=== PATIENT | female | born 1965 | race Caucasian/White ===

== ENCOUNTER 2018-11-04 13:51 | Observation (INO) ==
--- NOTE | 2018-11-04 14:16 | Emergency Department Note ---
Disposition Clinical Impression: Pyelonephritis Disposition: Admitted As Inpatient Condition: Fair Referrals: NONE,PCP [Non-Partnered Physician] - Forms: ED Satisfaction Letter Time of Disposition: 15:25 Female Urogenital HPI - General Chief complaint: ED Urogenital-Female Stated complaint: fever, nausea/vomiting possible uti Time Seen by Provider: 11/04/18 13:56 Source: patient Mode of arrival: ambulatory Limitations: no limitations Nursing Notes Reviewed: Yes Vital Signs Reviewed: Yes - History of Present Illness HPI Narrative: 53-year-old female has had a nephrectomy secondary to renal cancer presents to resume his having burning urgency frequency now she is developing flank pain and vomiting and fevers she states she has gotten worse over the past couple of days. She denies diarrhea melena hematochezia hematemesis. Patient states though that she said the pains in 8-9 out of 10. Denies any blurred vision double vision loss vision. Nothing makes it better nothing makes it worse. She denies cough cold of flulike symptoms chest pain chest pressure palpitations. She denies any rashes or lesions. Patient has frequent UTIs since her nephrectomy is been unclear why this is occurring patient eyes any additional c omplaints with complete entire review systems. Her your urologist is [place] she is agreed to stay at our facility at this time for 23 hours for antibiotics if necessary Pt Subjective Complaint: dysuria, "UTI" Onset (ago): day(s) Location: suprapubic Radiation: non-radiating Severity: severe Severity scale (1-10): 9 Quality: cramping Duration: constant, gradually worsening Improves with: none Worsens with: none Urinary Symptoms: dysuria, urgency, frequency Associated symptoms: Reports: abdominal pain, nausea/vomiting, fever/chills, loss of appetite - Related Data Home Medications Medication Instructions Recorded Confirmed Bupropion HCl [Wellbutrin Xl] 300 mg PO DAILY 12/18/16 11/04/18 Levothyroxine [place] [address]/18/16 11/04/18 Omeprazole [PriLOSEC] 40 mg PO DAILY 12/18/16 11/04/18 Atorvastatin [Lipitor] 40 mg PO HS 05/06/17 11/04/18 LORazepam [Ativan] 1 mg PO DAILY PRN 11/04/18 11/04/18 Metoprolol [Lopressor] 100 mg PO DAILY 11/04/18 11/04/18 Previous Rx's Medication Instructions Recorded Nitroglycerin 0.4 mg SL Q5MIN PRN #15 01/03/17 Ibuprofen 800 mg PO 2-3XD PRN #30 tablet 06/20/17 Allergies Allergy/AdvReac Type Severity Reaction Status Date / Time No Known Allergies Allergy Verified 03/02/18 18:39 All systems ED: reviewed and negative except as stated. Review of Systems: As Per HPI Constitutional: Reports: fever. Denies: chills, weakness Eyes: Denies: eye pain, eye discharge ENT ED: Denies: ear pain, throat pain Cardiovascular: Denies: chest pain, palpitations Respiratory: Denies: cough, dyspnea Gastrointestinal: Reports: abdominal pain, nausea, vomiting Genitourinary: Reports: urgency, dysuria, frequency Musculoskeletal: Reports: back pain. Denies: neck pain Integumentary: Denies: rash, abrasion Neurological: Denies: headache, weakness Psychiatric: Denies: anxiety Endocrine: Denies: fatigue Hematological/Lymphatic: Denies: easy bleeding Allergic/Immunologic: Denies: facial swelling Past Medical History - Past Medical History Attestation: Yes The following information was validated with the patient. 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 - Social History Smoking Status: Former smoker Smokeless Tobacco Status: No Alcohol use: Reports: none, rarely Drug use: Reports: none Physical Exam - General Limitations: no limitations General appearance: in no apparent distress - Head Head exam: atraumatic, normocephalic, normal inspection - Eye Eye exam: Present: normal appearance, PERRL, EOMI - ENT ENT exam: normal exam, normal oropharynx, mucous membranes moist - Expanded ENT Exam External ear exam: Present: normal external inspection Mouth exam: Present: normal external inspection Teeth exam: Present: normal inspection Throat exam: Present: normal inspection - Neck Neck exam: Present: normal inspection, full ROM, trachea midline - Chest Chest inspection: Present: normal inspection, symmetric chest wall rise - Respiratory Respiratory exam: Present: normal lung sounds bilaterally - Cardiovascular Cardiovascular exam: Present: regular rate, normal rhythm, normal heart sounds - Abdominal Exam Abdominal exam: Present: soft, Non-Tender, normal bowel sounds. Absent: tenderness, distention, guarding, rebound, rigidity, mass, pulsatile mass - Extremities Exam Extremities exam: Present: normal inspection, full ROM. Absent: tenderness, pedal edema - Expanded Upper Extremity Exam Shoulder exam: Present: normal inspection, full ROM Arm exam: Present: normal inspection, full ROM Elbow exam: Present: normal inspection, full ROM Forearm/Wrist exam: Present: normal inspection, full ROM Hand exam: Present: normal inspection, full ROM Vascular exam: Normal: capillary refill, radial pulse - Expanded Lower Extremity Exam Hip/Pelvis exam: Present: normal inspection, full ROM Upper leg exam: Present: normal inspection, full ROM Knee exam: Present: normal inspection, full ROM Lower leg exam: Present: normal inspection, full ROM Ankle exam: Present: normal inspection, full ROM Foot/toe exam: Present: normal inspection, full ROM Neurovascular/Tendon exam: Present: normal capillary refill, normal fine/light touch. Absent: motor deficit, sensory deficit, tendon deficit Gait: observed and normal - Back Exam Back exam: Present: normal inspection, full ROM. Absent: tenderness - Neurological Exam Neurological exam: Present: alert, oriented X3, CN II-XII intact, normal gait - Expanded Neurological Exam Patient oriented to: Present: person, place, time Coma Scale Eye Opening: Spontaneous Coma Scale Motor Response: Obeys Commands Coma Scale Verbal Response: Oriented Coma Scale Total: 15 - Psychiatric Psychiatric exam: Present: normal affect, normal mood - Skin Skin exam: Present: warm, dry, intact, normal color Course Course Narrative: Patient seen and examined given IV antibiotics patient was initially little bit reluctant on staying here but she did finally agree to staying and receiving IV antibiotics transferred to [facility] stable Vital Signs Temperature 100.5 F H 11/04/18 13:56 Pulse Rate 55 11/04/18 13:56 Respiratory Rate 18 11/04/18 13:56 Blood Pressure 96/66 11/04/18 13:56 O2 Sat by Pulse Oximetry 92 11/04/18 13:56 Temperature 100.5 F H 11/04/18 13:56 Pulse Rate 100 11/04/18 15:23 Respiratory Rate 18 11/04/18 15:23 Blood Pressure 99/67 11/04/18 15:23 O2 Sat by Pulse Oximetry 94 11/04/18 15:23 Oxygen Delivery Oxygen Delivery Room Air Urogenital-Female - MDM Narrative Medical decision making narrative: Fluids were transfused is upon the patient's ideal body weight of 160 keep pain not the 127 kg that she waited - Differential Diagnosis Likely: urinary tract infection - Medical Records Medical records reviewed: Yes I reviewed the patient's medical records. - Lab Data Lab results reviewed: Yes I reviewed the patient's lab results. Result diagrams: 11/04/18 14:31 11/04/18 14:31 Lab Results 11/04/18 11/04/18 11/04/18 Range/Units 14:31 14:31 14:31 WBC 20.0 H (4.3-11.1) K/mcL RBC 4.09 (3.82-4.97) M/mcL Hgb 12.8 (11.5-15.4) g/dL Hct 38.1 (35.3-44.9) % MCV 93.2 (83.0-100.0) fL MCH 31.3 (28.0-33.3) pg MCHC 33.6 (31.6-35.5) g/dL RDW 12.7 (11.5-14.5) % Plt Count 296 (140-400) K/mcL MPV 10.0 (9.4-12.4) fL Immature Gran % 1.0 (0-4) % Seg Neutrophils % 91.8 % Lymphocytes % 2.3 % Monocytes % 4.4 % Eosinophils % 0.1 % Basophils % 0.4 % Neutrophils # 18.4 H (1.6-8.9) K/mcL Lymphocytes # 0.5 L (0.6-4.6) K/mcL Monocytes # 0.9 (0.0-1.3) K/mcL Eosinophils # 0.0 (0.0-0.6) K/mcL Basophils # 0.1 (0.0-0.2) K/mcL Sodium 133 L (136-145) mEq/L Potassium 4.5 (3.5-5.1) mEq/L Chloride 100 (98-107) mEq/L Carbon Dioxide 21 L (23-29) mEq/L BUN 18 (6-20) mg/dL Creatinine 1.36 H (0.60-1.20) mg/dL Est GFR ( Amer) 49 L (> 60) Est GFR (Non-Af Amer) 41 L (> 60) BUN/Creatinine Ratio 13 (6-26) Glucose 165 H (70-105) mg/dL Calculated Osmolality 282 (280-300) Lactic Acid 1.4 (0.5-2.2) mmol/L Calcium 9.3 (8.6-10.3) mg/dL Total Bilirubin 0.5 (0.3-1.0) mg/dL AST 25 (13-39) Units/L ALT 32 (7-52) Units/L Alkaline Phosphatase 69 (34-104) Units/L Serum Total Protein 7.1 (6.4-8.9) g/dL Albumin 3.9 (3.5-5.7) g/dL Globulin 3.2 (2.4-3.5) g/dL Albumin/Globulin Ratio 1.2 (1.1-2.2) Urine Color (Yellow) Urine Clarity (Clear) Urine pH (5.0-8.0) pH Units Ur Specific [place] (1.010-1.025) Urine Protein (Neg-Trace) mg/dL Urine Glucose (UA) (Normal) mg/dL Urine Ketones (Negative) mg/dL Urine Blood (Negative) Urine Nitrite (Negative) Urine Bilirubin (Negative) Urine Urobilinogen (Normal) mg/dL Ur Leukocyte Esterase (Negative) 11/04/18 Range/Units 15:15 WBC (4.3-11.1) K/mcL RBC (3.82-4.97) M/mcL Hgb (11.5-15.4) g/dL Hct (35.3-44.9) % MCV (83.0-100.0) fL MCH (28.0-33.3) pg MCHC (31.6-35.5) g/dL RDW (11.5-14.5) % Plt Count (140-400) K/mcL MPV (9.4-12.4) fL Immature Gran % (0-4) % Seg Neutrophils % % Lymphocytes % % Monocytes % % Eosinophils % % Basophils % % Neutrophils # (1.6-8.9) K/mcL Lymphocytes # (0.6-4.6) K/mcL Monocytes # (0.0-1.3) K/mcL Eosinophils # (0.0-0.6) K/mcL Basophils # (0.0-0.2) K/mcL Sodium (136-145) mEq/L Potassium (3.5-5.1) mEq/L Chloride (98-107) mEq/L Carbon Dioxide (23-29) mEq/L BUN (6-20) mg/dL Creatinine (0.60-1.20) mg/dL Est GFR ( Amer) (> 60) Est GFR (Non-Af Amer) (> 60) BUN/Creatinine Ratio (6-26) Glucose (70-105) mg/dL Calculated Osmolality (280-300) Lactic Acid (0.5-2.2) mmol/L Calcium (8.6-10.3) mg/dL Total Bilirubin (0.3-1.0) mg/dL AST (13-39) Units/L ALT (7-52) Units/L Alkaline Phosphatase (34-104) Units/L Serum Total Protein (6.4-8.9) g/dL Albumin (3.5-5.7) g/dL Globulin (2.4-3.5) g/dL Albumin/Globulin Ratio (1.1-2.2) Urine Color Yellow (Yellow) Urine Clarity Turbid A (Clear) Urine pH 5.5 (5.0-8.0) pH Units Ur Specific [place] 1.010 (1.010-1.025) Urine Protein 100 H (Neg-Trace) mg/dL Urine Glucose (UA) 100 H (Normal) mg/dL Urine Ketones Negative (Negative) mg/dL Urine Blood Large H (Negative) Urine Nitrite Positive A (Negative) Urine Bilirubin Small H (Negative) Urine Urobilinogen Normal (Normal) mg/dL Ur Leukocyte Esterase Large H (Negative) Critical Care Time Critical Care Time: No Sepsis Event Note - Evaluation Sepsis Screen: No Definite Risk Current Stage of Suspected Sepsis: sepsis Possible Source of Sepsis: genitourinary - Focused Exam Date of Encounter: 11/04/18 Time of Encounter: 15:31 Vital Signs: Vital Signs Temp Pulse Resp BP Pulse Ox 11/04/18 15:23 100 18 99/67 94 11/04/18 13:56 100.5 F H 55 18 96/66 92 Respiratory Exam: Present: CTA bilaterally Cardiovascular Exam: Present: RRR Capillary Refill: < 2 seconds Peripheral Pulse Strength: 3+ normal Peripheral Pulse Location: Radial Skin Exam: normal turgor - Bedside Monitoring Bedside Ultrasound Performed: No Passive Leg raise/fluid bolus: fluid responsive
[2018-11-04] MEDS ORDERED: Morphine Sulfate 2 MG/ML SYRINGE IVP ONE (14:23)
[2018-11-04] MEDS ORDERED: Ondansetron 4 MG/2 ML VIAL IVP ONE (14:23)
[2018-11-04 14:38] LABS: Basophils # 0.1 K/mcL (0.0-0.2); Basophils % 0.4 %; Eosinophils % 0.1 %; Hematocrit 38.1 % (35.3-44.9); Hemoglobin 12.8 g/dL (11.5-15.4); Lymphocytes # 0.5 K/mcL (0.6-4.6); Lymphocytes % 2.3 %; Mean Corpuscular HGB Conc 33.6 g/dL (31.6-35.5); Mean Corpuscular Hemoglobin 31.3 pg (28.0-33.3); Mean Corpuscular Volume 93.2 fL (83.0-100.0); Monocytes # 0.9 K/mcL (0.0-1.3); Monocytes % 4.4 %; Neutrophils # 18.4 K/mcL (1.6-8.9); Platelet Count 296 K/mcL (140-400); Red Blood Count 4.09 M/mcL (3.82-4.97); Red Cell Distribution Width 12.7 % (11.5-14.5); Segmented Neutrophils % 91.8 %
[2018-11-04] MEDS ORDERED: 0.9 % Sodium Chloride 1,000 ML IVC ONE ×2 (14:38→15:32)
[2018-11-04 14:58] LABS: Albumin 3.9 g/dL (3.5-5.7); Albumin/Globulin Ratio 1.2 (1.1-2.2); Bilirubin,Total 0.5 mg/dL (0.3-1.0); Calcium 9.3 mg/dL (8.6-10.3); Globulin 3.2 g/dL (2.4-3.5); Potassium 4.5 mEq/L (3.5-5.1); Total Protein 7.1 g/dL (6.4-8.9)
[2018-11-04 15:23] LABS: Bilirubin,Urine Small (Negative); Blood,Urine Large (Negative); Clarity,Urine Turbid (Clear); Color,Urine Yellow (Yellow); Glucose,Urine (UA) 100 mg/dL (Normal); Ketones,Urine Negative (Negative); Leukocyte Esterase,Urine Large (Negative); Nitrite,Urine Positive (Negative); PH,Urine 5.5 pH Units (5.0-8.0); Protein,Urine 100 mg/dL (Neg-Trace); Urobilinogen,Urine Normal (Normal)
[2018-11-04 15:39] LABS: Amorphous Sediment,Urine Few (Few); Bacteria,Urine Many per hpf (None-Few); Mucus,Urine Few (Few); Squamous Epithelial Cell,Urine Moderate per lpf (None-Few); WBC,Urine 50-100 per hpf (0-3)
[2018-11-04] MEDS ORDERED: *HR* LORazepam 1 MG TABLET PO PRN (19:50)
[2018-11-05] MEDS: *HR* OxyCODONE Immed Rel 5 MG TABLET PO PRN ×3 (02:46→16:18)
[2018-11-05 06:17] LABS: Basophils # 0.1 K/mcL (0.0-0.2); Basophils % 0.7 %; Eosinophils % 0.1 %; Hematocrit 35.7 % (35.3-44.9); Hemoglobin 11.8 g/dL (11.5-15.4); Immature Granulocytes % 1.4 % (0-4); Lymphocytes # 0.9 K/mcL (0.6-4.6); Lymphocytes % 6.7 %; Mean Corpuscular HGB Conc 33.1 g/dL (31.6-35.5); Mean Corpuscular Hemoglobin 31.4 pg (28.0-33.3); Mean Corpuscular Volume 94.9 fL (83.0-100.0); Mean Platelet Volume 10.5 fL (9.4-12.4); Monocytes # 0.9 K/mcL (0.0-1.3); Monocytes % 7.1 %; Neutrophils # 11.1 K/mcL (1.6-8.9); Platelet Count 260 K/mcL (140-400); Red Blood Count 3.76 M/mcL (3.82-4.97); Red Cell Distribution Width 12.9 % (11.5-14.5); White Blood Count 13.2 K/mcL (4.3-11.1)
[2018-11-05 06:55] LABS: BUN/Creatinine Ratio 12 (6-26); Blood Urea Nitrogen 13 mg/dL (6-20); Calcium 8.6 mg/dL (8.6-10.3); Carbon Dioxide 24 mEq/L (23-29); Chloride 100 mEq/L (98-107); Glucose 119 mg/dL (70-105); Osmolality,Calculated 275 (280-300); Potassium 3.8 mEq/L (3.5-5.1); Sodium 132 mEq/L (136-145); eGFR For African Americans > 60 (> 60); eGFR For Non-African Americans 54 (> 60)
[2018-11-05] MEDS ORDERED: cefTRIAXone 1,000 MG in Water for inj. (sterile) 10 ML IVP ONE (09:00)
[2018-11-05] MEDS: BuPROPion XL (24 HR) 150 MG TABLET PO SCH (09:17)
[2018-11-05] MEDS: Metoprolol XL (24 HR) Succ 50 MG TAB.ER.24H PO SCH (09:17)
[2018-11-05] MEDS: Ondansetron 4 MG/2 ML VIAL IVP PRN ×2 (09:19→16:19)
--- NOTE | 2018-11-05 10:26 | Internal Med History&Physical ---
Date of Encounter: 11/05/18 Time of Encounter: 10:21 Assessment and Plan (1) Pyelonephritis Current visit: Yes Status: Acute Symptomatically improving with IV ceftriaxone. Will add oral FQ and repeat labs in AM. Blood and urine cultures pending. Likely d/c IV antibiotics tomorrow with discharge home on oral FQ if pt continues to improve. (2) HLD (hyperlipidemia) Current visit: No Status: Acute Stable. Continue home regimen. Qualifiers: Hyperlipidemia type: mixed hyperlipidemia Qualified Code(s): E78.2 - Mixed hyperlipidemia (3) Hypertension Current visit: No Status: Acute Home metoprolol dose reduced given marginal hypotension with recent infection. Will monitor for now. Qualifiers: Hypertension type: essential hypertension Qualified Code(s): I10 - Essential (primary) hypertension Internal Medicine - H&P: HPI Chief complaint: nausea, urinary urgency Admitted From: Home Plans for Post Hospital Care: Home History of present illness: Ms. Rey is a 53 year old female s/p R nephrectomy secondary to prior RCC followed by [facility] that presented to ED with 2-3 day history of nausea, chills, subjective fevers, abdominal pain and urinary burning and urgency with frequency. She was evaluated in ED and diagnosed with a pyelonephritis. Blood and urine cultures obtained. She was placed on IV ceftriaxone and admitted for further evaluation and treatment. Pt is doing better this morning, but continues to have some pain in left CVA region with nausea. Pt tolerating po and ambulating. Past Med Surg Social Fam HX - Past Medical History Medical history: cancer, hyperlipidemia, hypertension, other Additional medical history: recurrent UTI, tachycardia Psychiatric history: anxiety, depression - Past Surgical History Surgical History: hysterectomy, thyroidectomy Additional surgical history: right kidney removed due to cancer, thyroidectomy - Social History Smoking Status: Former smoker Smokeless Tobacco Status: No Alcohol use: none, rarely Drug use: none - Family History Mother Living Status: Hx Family Cardiac Disorders: Yes (chf, pulm htn) Hx Family Endocrine Disorder: Yes (DM) Father Family Member Ethnicity: Non- Living Status: Hx Family Cardiac Disorders: No Hx Family Respiratory Disorders: No Hx Family Cancer: Yes Hx Family GI Disorders: Yes (GERD) Hx Family Endocrine Disorder: No Hx Family Neuromuscular Disorders: No Hx Family Neurologic Disorders: No Hx Family HEENT Disorders: No Hx Family Autoimmune Disorders: No Internal Medicine - H&P: Meds Bupropion HCl [Wellbutrin Xl] 300 mg PO DAILY 12/18/16 [History] Levothyroxine Sodium 175 mcg PO 0630 12/18/16 [History] Omeprazole [PriLOSEC] 40 mg PO DAILY 12/18/16 [History] Nitroglycerin 0.4 mg SL Q5MIN PRN #15 01/03/17 [Rx] Atorvastatin [Lipitor] 40 mg PO HS 05/06/17 [History] Ibuprofen 800 mg PO 2-3XD PRN #30 tablet 06/20/17 [Rx] LORazepam [Ativan] 1 mg PO DAILY PRN 11/04/18 [History] Metoprolol [Lopressor] 100 mg PO DAILY 11/04/18 [History] Allergy/AdvReac Type Severity Reaction Status Date / Time No Known Allergies Allergy Verified 03/02/18 18:39 All Systems PM: A 10-system review of systems was performed and is negative for pertinent findings except as documented above in the HPI. - Constitutional Vitals: Temp Pulse Resp BP Pulse Ox 99.7 F H 93 18 115/72 94 11/05/18 04:19 11/05/18 04:19 11/05/18 04:19 11/05/18 04:19 11/05/18 04:19 Exam: Gen: Lying in bed, NAD HEENT: NC, AT Neck: Trachea midline, no mass Pulm: No respiratory distress, CTAB CV: Normal S1 and S2, RRR Abdomen: Soft, ND, NT, + mild CVA tenderness Ext: No C/C/E Neuro: No appreciable motor/sensor deficits Skin: Warm and dry, no rash Psych: A&Ox3 Internal Med - H&P Results - Labs CBC & Chem 7: 11/05/18 05:16 11/05/18 05:16 Labs: Short CBC 11/04/18 11/05/18 Range/Units 14:31 05:16 WBC 20.0 H 13.2 H (4.3-11.1) K/mcL Hgb 12.8 11.8 (11.5-15.4) g/dL Hct 38.1 35.7 (35.3-44.9) % Plt Count 296 260 (140-400) K/mcL Neutrophils # 18.4 H 11.1 H (1.6-8.9) K/mcL BMP 11/04/18 11/05/18 14:31 05:16 Sodium 133 L 132 L Potassium 4.5 3.8 Chloride 100 100 Carbon Dioxide 21 L 24 BUN 18 13 Creatinine 1.36 H 1.06 Glucose 165 H 119 H Calcium 9.3 8.6 Liver Function 11/04/18 Range/Units 14:31 Total Bilirubin 0.5 (0.3-1.0) mg/dL AST 25 (13-39) Units/L ALT 32 (7-52) Units/L Alkaline Phosphatase 69 (34-104) Units/L Albumin 3.9 (3.5-5.7) g/dL Urine 11/04/18 Range/Units 15:15 Urine Color Yellow (Yellow) Urine Clarity Turbid A (Clear) Urine pH 5.5 (5.0-8.0) pH Units Ur Specific [place] 1.010 (1.010-1.025) Urine Protein 100 H (Neg-Trace) mg/dL Urine Glucose (UA) 100 H (Normal) mg/dL
[2018-11-06 04:58] LABS: Hematocrit 37.1 % (35.3-44.9); Hemoglobin 12.1 g/dL (11.5-15.4); Mean Corpuscular HGB Conc 32.6 g/dL (31.6-35.5); Mean Corpuscular Hemoglobin 30.9 pg (28.0-33.3); Mean Corpuscular Volume 94.9 fL (83.0-100.0); Mean Platelet Volume 9.9 fL (9.4-12.4); Platelet Count 275 K/mcL (140-400); Red Blood Count 3.91 M/mcL (3.82-4.97); Red Cell Distribution Width 12.6 % (11.5-14.5); White Blood Count 7.8 K/mcL (4.3-11.1)
[2018-11-06 05:19] LABS: Albumin 3.6 g/dL (3.5-5.7); BUN/Creatinine Ratio 11 (6-26); Blood Urea Nitrogen 11 mg/dL (6-20); Carbon Dioxide 25 mEq/L (23-29); Chloride 105 mEq/L (98-107); Glucose 92 mg/dL (70-105); Osmolality,Calculated 285 (280-300); Phosphorous 3.1 mg/dL (2.7-4.5); Potassium 3.9 mEq/L (3.5-5.1); Sodium 138 mEq/L (136-145); eGFR For African Americans > 60 (> 60); eGFR For Non-African Americans > 60 (> 60)
[2018-11-06 07:18] VITALS: BP 117/79
--- NOTE | 2018-11-06 08:38 | Discharge Summary ---
- NOTES TO OUTPATIENT PROVIDER Notes to Outpatient Provider: Urine culture pending at time of discharge. Orders not resulted at time of discharge: Pending orders 11/04/18 14:35 Culture,Blood [BC] Stat 11/04/18 15:15 Culture,Urine [RM] Stat Date of Encounter: 11/06/18 Time of Encounter: 08:36 - Discharge Diagnosis (1) Pyelonephritis Priority: Primary Status: Resolved Comments: Resolving pyelonephritis s/p IV antibiotic course. Pt has been transitioned to oral ciprofloxacin to complete a 7 day antibiotic course. Her urine culture was growing gram negative bacteria at time of discharge. (2) HLD (hyperlipidemia) Priority: Secondary Status: Chronic Comments: Stable. Continue outpatient regimen. Qualifiers: Hyperlipidemia type: mixed hyperlipidemia Qualified Code(s): E78.2 - Mixed hyperlipidemia (3) Hypertension Priority: Secondary Status: Chronic Comments: Well-controlled. Continue outpatient regimen. Qualifiers: Hypertension type: essential hypertension Qualified Code(s): I10 - Essential (primary) hypertension Hospital course: Ms. Rey is a 53 year old female s/p R nephrectomy secondary to prior RCC followed by [facility] that presented to ED with 2-3 day history of nausea, chills, subjective fevers, abdominal pain and urinary burning and urgency with frequency. She was evaluated in ED and diagnosed with a pyelonephritis. Blood and urine cultures obtained. She was treated with IV ceftriaxone and IV fluids. She subsequently improved and was transitioned to oral ciprofloxacin to complete a 7 day antibiotic course. Her urine culture was growing gram negative rods as time of discharge. On day of discharge, patient was ambulating independently, tolerating a regular diet and felt much better, being eager for discharge home. Discharge discussed with: patient - Time Spent with Patient Total time spent providing and/or coordinating discharge services: Time spent: Less than 30 minutes - Discharge Medications Prescriptions: New Ciprofloxacin [Cipro] 500 mg PO BID #11 tablet Continued Omeprazole [PriLOSEC] 40 mg PO DAILY Levothyroxine Sodium 175 mcg PO 0630 Bupropion HCl [Wellbutrin Xl] 300 mg PO DAILY Nitroglycerin 0.4 mg SL Q5MIN PRN #15 PRN Reason: Chest Pain Ibuprofen 800 mg PO 2-3XD PRN #30 tablet PRN Reason: Pain Atorvastatin [Lipitor] 40 mg PO HS Metoprolol [Lopressor] 100 mg PO DAILY LORazepam [Ativan] 1 mg PO DAILY PRN PRN Reason: Anxiety Home Medications: Bupropion HCl [Wellbutrin Xl] 300 mg PO DAILY 12/18/16 [History] Levothyroxine Sodium 175 mcg PO 0630 12/18/16 [History] Omeprazole [PriLOSEC] 40 mg PO DAILY 12/18/16 [History] Nitroglycerin 0.4 mg SL Q5MIN PRN #15 01/03/17 [Rx] Atorvastatin [Lipitor] 40 mg PO HS 05/06/17 [History] Ibuprofen 800 mg PO 2-3XD PRN #30 tablet 06/20/17 [Rx] LORazepam [Ativan] 1 mg PO DAILY PRN 11/04/18 [History] Metoprolol [Lopressor] 100 mg PO DAILY 11/04/18 [History] Ciprofloxacin [Cipro] 500 mg PO BID #11 tablet 11/06/18 [Rx] Allergies/Adverse Reactions: Allergy/AdvReac Type Severity Reaction Status Date / Time No Known Allergies Allergy Verified 03/02/18 18:39 Date of admission: 11/04/18 15:30 Primary care physician: Joss Richmond DO Consults: None Discharging clinician: Skyler Walker Anticipated date of discharge: 11/06/18 - Constitutional Vitals: Temp Pulse Resp BP Pulse Ox 98.5 F 80 19 117/79 91 11/06/18 07:16 11/06/18 07:16 11/06/18 07:16 11/06/18 07:16 11/06/18 07:16 Exam: Gen: Lying in bed, NAD HEENT: NC, AT Neck: Trachea midline, no mass Pulm: No respiratory distress, CTAB CV: Normal S1 and S2, RRR Abdomen: Soft, ND, NT Ext: No C/C/E Neuro: No appreciable motor/sensor deficits Skin: Warm and dry, no rash Psych: A&Ox3 - Patient Status Disposition: Home, Self-Care Condition: Good Functional capacity at discharge: independent ambulation Overall status at discharge: patient is back to baseline - Discharge Instructions Follow Up With: Joss Richmond DO [Primary Care Provider] - 1 week - Diet and Activity Activity: increase activity as tolerated, resume usual activities as tolerated Diet: advance to your usual diet - VTE Reasons for not Prescribing Prophylaxis: Treatment not Indicated - Low risk for VTE
[2018-11-06] MEDS: BuPROPion XL (24 HR) 150 MG TABLET PO SCH (09:08)
[2018-11-06] MEDS: Metoprolol XL (24 HR) Succ 50 MG TAB.ER.24H PO SCH (09:08)
== END 2018-11-06 09:54 | disposition home or self-care (01) ==
LOC: INPPIK 13:51 → EMEROOPIK 13:51 → INPPIK 18:53
PROVIDERS: ADMIT Internal Medicine; ATTEND Internal Medicine